=== PATIENT | male | born 1970 | race African-American/Black ===

== ENCOUNTER 2016-06-24 12:31 | Emergency (ER) | payer MEDICAID ==
[~2016-06-24] VITALS: Ht 167.6 cm; Wt 77.9 kg
[~2016-06-24 12:31] MED LIST: ACET325T26 PO; CEFD300C2 PO; DOXY100T PO; IBUP-1 PO; NICO1PAT5 TD; PANT40TA3 PO
[2016-06-24] MEDS ORDERED: MORPHINE SULFATE 4 MG/ML, 1ML IV PRN (17:30)
[2016-06-24] MEDS ORDERED: SODIUM CHLORIDE FLUSH 10ML SYR IVF ONE (17:30)
[2016-06-24] MEDS ORDERED: CLINDAMYCIN PMX 600MG/50ML 50 ML IVPB ONE (17:30)
[2016-06-24] MEDS ORDERED: ONDANSETRON 2MG/ML, 2ML IVPush ONE (17:30)
[2016-06-24] MEDS ORDERED: ONDANSETRON 2MG/ML, 2ML ONE (17:35)
[2016-06-24] MEDS ORDERED: CLINDAMYCIN PMX 600MG/50ML 50 ML ONE (17:35)
[2016-06-24] MEDS ORDERED: MORPHINE SULFATE 4 MG/ML, 1ML ONE (17:35)
[2016-06-24 17:59] LABS: HEMOGLOBIN 13.2 g/dL (13.7-18.0)
[2016-06-24 18:11] LABS: BLOOD UREA NITROGEN 11 mg/dL (7-18)
[2016-06-24 18:15] LABS: ASPARTATE AMINO TRANSFERASE 13 U/L (15-37)
[2016-06-24] MEDS ORDERED: MIDAZOLAM 1 MG/ML, 5ML ONE (18:25)
[2016-06-24] MEDS ORDERED: LIDOCAINE 1%-EPI 1:100K, 20ML ONE (18:25)
[2016-06-24 20:23] VITALS: BP 115/75
== END 2016-06-24 21:14 | disposition home or self-care (01) ==
LOC: ED 17:41
DX: L02.01 Cutaneous abscess of face (principal)
CPT/HCPCS: 36415; 71010; 76536; 80053; 81001; 83605; 84145; 85025; 87015; 87070; 87077; 87116; 87186; 87205; 87206; 93005; 96365; 96375; 99285; J2405

== ENCOUNTER 2017-12-09 23:20 | Emergency (ER) | payer SELFPAY ==
[~2017-12-09] VITALS: Ht 167.6 cm; Wt 74.8 kg
[~2017-12-09 23:20] MED LIST changes: -CEFD300C2 PO; +CEFD300C37 PO; +ESOM20CA PO; -IBUP-1 PO; +IBUP-11 PO; +NICO-586 TD; -NICO1PAT5 TD
[2017-12-09 23:22] VITALS: BP 134/83
[2017-12-09] MEDS ORDERED: DEXAMETHASONE 4 MG TABLET ONE (23:49)
[2017-12-09] MEDS ORDERED: KETOROLAC 30 MG/1 ML ONE (23:49)
[2017-12-10] MEDS ORDERED: DEXAMETHASONE 4 MG TABLET PO ONE
[2017-12-10] MEDS ORDERED: KETOROLAC 30 MG/1 ML IM ONE
== END 2017-12-10 00:08 | disposition home or self-care (01) ==
LOC: ED 23:59
DX: K08.89 Other specified disorders of teeth and supporting structures (principal); J02.9 Acute pharyngitis, unspecified
CPT/HCPCS: 96372; 99283; J1885

== ENCOUNTER 2018-01-02 00:25 | Inpatient (IN) | payer MEDICAID, OTHER ==
[~2018-01-02] VITALS: Ht 167.6 cm; Wt 76.2 kg
[2018-01-02] MEDS ORDERED: OMEP20TA62 PO (01:19)
[2018-01-02] MEDS ORDERED: SODIUM CHLORIDE 0.9% 1,000 ML IV ONE ×2 (01:25→03:10)
[2018-01-02] MEDS ORDERED: SODIUM CHLORIDE FLUSH 10ML SYR IVF ONE (01:30)
[2018-01-02] MEDS ORDERED: ACETAMINOPHEN 500 MG TABLET PO ONE (01:30)
[2018-01-02] MEDS ORDERED: ONDANSETRON ODT 4 MG PO ONE (01:30)
[2018-01-02] MEDS ORDERED: MORPHINE SULFATE 4 MG/ML, 1ML IVPush PRN (01:30)
[2018-01-02] MEDS ORDERED: SODIUM CHLORIDE 0.9% 1,000ML IVBOLUS ONE (01:30)
[2018-01-02] MEDS ORDERED: ACETAMINOPHEN 650 MG/20.3 ML UDC ONE (01:34)
[2018-01-02] MEDS ORDERED: ONDANSETRON ODT 4 MG ONE (01:35)
[2018-01-02] MEDS ORDERED: MORPHINE SULFATE 4 MG/ML, 1ML ONE (01:35)
[2018-01-02 02:05] LABS: ALBUMIN 3.3 g/dL (3.4-5.0); ANION GAP 8 mmol/L (5-15); CALCIUM 8.5 mg/dL (8.5-10.1); CHLORIDE 104 mmol/L (98-107); CREATININE 1.06 mg/dL (0.7-1.3)
[2018-01-02 02:09] LABS: MEAN CORPUSCULAR HEMOGLOBIN 23.3 pg (27.5-34.5); MEAN CORPUSCULAR HGB CONC 31.8 g/dL (33.2-36.2); MEAN CORPUSCULAR VOLUME 73.2 fL (81-97); MEAN PLATELET VOLUME 9.6 fL (7.4-10.4); PLATELET COUNT 251 x10^3/uL (130-400); RED BLOOD COUNT 5.61 x10^6/uL (4.38-5.82); RED CELL DISTRIBUTION WIDTH 15.7 % (9.4-14.8)
[2018-01-02 02:22] LABS: BASOPHILS # (AUTO) 0.05 x10^3/uL (0-0.1); BASOPHILS % (AUTO) 0 % (0-1); EOSINOPHILS # (AUTO) 0.11 x10^3/uL (0-0.4); EOSINOPHILS % (AUTO) 1 % (1-7); LYMPHOCYTES # (AUTO) 2.33 x10^3/uL (1-3.4); LYMPHOCYTES % (AUTO) 17 % (22-44); MD SCAN; MONOCYTES # (AUTO) 1.81 x10^3/uL (0.2-0.8); MONOCYTES % (AUTO) 13 % (2-9); NEUTROPHILS # (AUTO) 9.25 x10^3/uL (1.8-6.8); NEUTROPHILS % (AUTO) 68 % (42-75)
[2018-01-02] MEDS ORDERED: DEXAMETHASONE 4 MG/ML, 1ML IVPush ONE (02:30)
[2018-01-02] MEDS ORDERED: DEXAMETHASONE 4 MG/ML, 1ML ONE (02:39)
[2018-01-02] MEDS ORDERED: SODIUM CHLORIDE FLUSH 10ML SYR IVF PRN (03:30)
[2018-01-02] MEDS ORDERED: AMPICILLIN/SULBACTAM 3 GM in SODIUM CHLORIDE 0.9% 100 ML IV ONE (03:30)
[2018-01-02 03:50] VITALS: BP 118/80
[2018-01-02] MEDS ORDERED: D5%-0.45% NACL 1,000 ML IV SCH (04:21)
[2018-01-02] MEDS ORDERED: morphine SULFATE 10 MG/ML, 1ML IVPush PRN (04:30)
[2018-01-02] MEDS ORDERED: ONDANSETRON 2MG/ML, 2ML IVPush PRN (04:30)
[2018-01-02] MEDS ORDERED: hydrALAzine 20 MG/ML, 1ML IVPush PRN (04:30)
[2018-01-02 05:08] LABS: ABSOLUTE RETICS # 0.044 x10^6/uL (0.5-1.5); RED BLOOD COUNT 5.6 x10^6/uL (4.38-5.82); RETICULOCYTE COUNT % 0.79 % (0.5-1.5)
[2018-01-02] MEDS: NICOTINE 7 MG/24 HR PATCH.TD24 TD SCH ×2 (06:10→16:29)
[2018-01-02 07:53] VITALS: BP 113/66
[2018-01-02] MEDS ORDERED: DEXAMETHASONE 4 MG/ML, 1ML IVPush SCH ×2 (08:30→14:30)
[2018-01-02] MEDS: AMPICILLIN/SULBACTAM 3 GM in SODIUM CHLORIDE 0.9% 100 ML IV SCH ×3 (09:04→21:35)
[2018-01-02] MEDS: PANTOPRAZOLE 40 MG IV IVPush SCH (09:04)
[2018-01-02 13:55] VITALS: BP 128/70
[2018-01-02] MEDS: DEXAMETHASONE 10 MG in SODIUM CHLORIDE 0.9% 50 ML IV SCH (17:36)
[2018-01-02 20:03] VITALS: BP 124/74
[2018-01-02] MEDS: HYDROcodone/APAP 5/325 TABLET PO PRN (21:35)
[2018-01-03 02:30] VITALS: BP 141/81
[2018-01-03] MEDS: AMPICILLIN/SULBACTAM 3 GM in SODIUM CHLORIDE 0.9% 100 ML IV SCH ×3 (04:15→17:59)
[2018-01-03] MEDS: DEXAMETHASONE 10 MG in SODIUM CHLORIDE 0.9% 50 ML IV SCH ×2 (05:32→19:20)
[2018-01-03 05:48] LABS: ANION GAP 10 mmol/L (5-15); CALCIUM 8.4 mg/dL (8.5-10.1); CHLORIDE 109 mmol/L (98-107); CREATININE 0.99 mg/dL (0.7-1.3)
[2018-01-03 05:56] LABS: MEAN CORPUSCULAR HEMOGLOBIN 23.4 pg (27.5-34.5); MEAN CORPUSCULAR HGB CONC 31.4 g/dL (33.2-36.2); MEAN CORPUSCULAR VOLUME 74.6 fL (81-97); MEAN PLATELET VOLUME 9.6 fL (7.4-10.4); PLATELET COUNT 249 x10^3/uL (130-400); RED BLOOD COUNT 5.12 x10^6/uL (4.38-5.82); RED CELL DISTRIBUTION WIDTH 16.1 % (9.4-14.8)
[2018-01-03 06:30] LABS: BASOPHILS # (AUTO) 0.04 x10^3/uL (0-0.1); BASOPHILS % (AUTO) 0 % (0-1); EOSINOPHILS % (AUTO) 0 % (1-7); LYMPHOCYTES # (AUTO) 1.52 x10^3/uL (1-3.4); LYMPHOCYTES % (AUTO) 7 % (22-44); MD SCAN; MONOCYTES # (AUTO) 1.81 x10^3/uL (0.2-0.8); MONOCYTES % (AUTO) 8 % (2-9); NEUTROPHILS # (AUTO) 18.05 x10^3/uL (1.8-6.8); NEUTROPHILS % (AUTO) 84 % (42-75)
[2018-01-03 07:48] VITALS: BP 142/64
[2018-01-03] MEDS: PANTOPRAZOLE 40 MG IV IVPush SCH (07:57)
[2018-01-03] MEDS: HYDROcodone/APAP 5/325 TABLET PO PRN ×2 (08:11→21:58)
[2018-01-03 14:41] VITALS: BP 134/75
[2018-01-03 20:03] VITALS: BP 142/78
[2018-01-04] MEDS: AMPICILLIN/SULBACTAM 3 GM in SODIUM CHLORIDE 0.9% 100 ML IV SCH ×2 (00:49→06:05)
[2018-01-04 03:48] VITALS: BP 130/71
[2018-01-04 05:32] LABS: ANION GAP 8 mmol/L (5-15); CALCIUM 8.5 mg/dL (8.5-10.1); CHLORIDE 106 mmol/L (98-107)
[2018-01-04 05:40] LABS: MEAN CORPUSCULAR HEMOGLOBIN 23.5 pg (27.5-34.5); MEAN CORPUSCULAR HGB CONC 31.6 g/dL (33.2-36.2); MEAN CORPUSCULAR VOLUME 74.3 fL (81-97); MEAN PLATELET VOLUME 9.9 fL (7.4-10.4); PLATELET COUNT 288 x10^3/uL (130-400); RED BLOOD COUNT 5.29 x10^6/uL (4.38-5.82); RED CELL DISTRIBUTION WIDTH 15.7 % (9.4-14.8)
[2018-01-04 05:42] LABS: CREATININE 0.85 mg/dL (0.7-1.3)
[2018-01-04] MEDS: NICOTINE 7 MG/24 HR PATCH.TD24 TD SCH (06:07)
[2018-01-04 06:38] LABS: MD YES
[2018-01-04 06:40] LABS: BAND#(MANUAL) 0.94 x10^3/uL; BANDS%(MANUAL) 4 % (0-7); LYMPH#(MANUAL) 2.59 x10^3/uL (1-3.4); LYMPHS% (MANUAL) 11 % (22-44); MICROCYTOSIS 1+; MONOS#(MANUAL) 0.24 x10^3/uL (0.3-2.7); MONOS% (MANUAL) 1 % (2-9); SEG#(MANUAL) 19.74 x10^3/uL (1.8-6.8); SEGS% (MANUAL) 84 % (42-75)
[2018-01-04 06:41] LABS: <PLATELET ESTIMATE> ADEQUATE; <PLT MORPHOLOGY> NORMAL PLT MORPH
[2018-01-04] MEDS: DEXAMETHASONE 10 MG in SODIUM CHLORIDE 0.9% 50 ML IV SCH (07:52)
[2018-01-04] MEDS: PANTOPRAZOLE 40 MG IV IVPush SCH (07:52)
[2018-01-04 08:06] VITALS: BP 134/70
[2018-01-04] MEDS ORDERED: OMEP20TA62 PO (10:56)
[2018-01-04] MEDS ORDERED: AMOX1TAB64 PO (10:56)
[2018-01-04] MEDS ORDERED: METH4TAB2 PO (10:57)
== END 2018-01-04 13:49 | disposition home or self-care (01) | DRG 872 ==
LOC: ED 01:31 → EDIP 03:10 → 4WST 03:46 → 4EST 01-03 20:19 → DCLOUNGE 01-04 13:32
PROVIDERS: ADMIT Internal Medicine; ATTEND Internal Medicine
DX: A41.9 Sepsis, unspecified organism (principal); D50.9 Iron deficiency anemia, unspecified; F12.90 Cannabis use, unspecified, uncomplicated; F17.200 Nicotine dependence, unspecified, uncomplicated; J39.2 Other diseases of pharynx; K21.9 Gastro-esophageal reflux disease without esophagitis; Z82.3 Family history of stroke; Z82.49 Family history of ischemic heart disease and other diseases of the circulatory system; Z83.3 Family history of diabetes mellitus; Z87.11 Personal history of peptic ulcer disease
CPT/HCPCS: 36415; 70491; 80048; 82040; 82728; 83540; 83550; 83605; 83735; 84100; 84145; 85025; 85045; 86140; 87040; 87081; 87880; 93005; 96361; 96365; 96375; 99285; G0378; J0295; J1100; Q0162; C9113; J7030